=== PATIENT | female | born 1940 | race Hispanic/Latino ===

== ENCOUNTER 2017-04-07 07:42 | Day surgery (SDC) | payer MEDICARE, MEDICAID ==
[2017-04-07 08:33] VITALS: BMI 23.4
[2017-04-07] MEDS ORDERED: Lactated Ringer's 500 ML IV ONE (11:16)
[2017-04-07] MEDS ORDERED: Propofol 10 mg/ml Inj (20 ML) ONE (11:17)
[2017-04-07] MEDS ORDERED: Lidocaine Hydrochloride 5 ML INJ ONE (11:17)
[2017-04-07] MEDS ORDERED: Simethicone 40 mg/0.6 ml Liquid (30 ml) ONE (11:52)
[2017-04-07 12:26] VITALS: TEMP 98.2
[2017-04-07 13:58] VITALS: BP 103/64; PULSE 59; RESP 13; O2SAT 98
== END 2017-04-07 13:20 | disposition home or self-care (01) ==
LOC: C.ENDO 07:42
PROVIDERS: ATTEND Internal Medicine
DX: K57.90 Diverticulosis of intestine, part unspecified, without perforation or abscess without bleeding (principal); K64.8 Other hemorrhoids; K31.7 Polyp of stomach and duodenum; K44.9 Diaphragmatic hernia without obstruction or gangrene; B96.81 Helicobacter pylori [H. pylori] as the cause of diseases classified elsewhere; K21.9 Gastro-esophageal reflux disease without esophagitis; K29.80 Duodenitis without bleeding
CPT/HCPCS: 43239; 45378; 88305; 88313; 88342; J2704; J7120